=== PATIENT | male | born 1975 | race Caucasian/White ===

== ENCOUNTER 2020-12-16 12:20 | Emergency (ER) | payer BC ==
[~2020-12-16] VITALS: Ht 180.3 cm; Wt 90.0 kg
--- NOTE | 2020-12-16 12:49 | PHYS DOC ---
Past Medical History Past Surgical History: No Surgical History General Adult EDM: Chief Complaint: ANXIETY/PANIC ATTACK HPI: HPI: Patient is a 45-year-old male presenting via POV for anxiety/panic attack. States he is healthy and cycles often with no diagnosed medical conditions or daily medications. Admits that he is fully vaccinated against COVID-19 but started becoming symptomatic November 30 with upper respiratory and GI symptoms and subsequently tested positive for Covid 2 days later. States he has been having sequelae from Covid ever since such as brain fog. Reports he was thinking about his diagnosis and fear of getting other family members sick in his household such as his mother prompting him to have an anxiety/panic attack today. States he has history of this but he can typically control it, today reports he is unable to control his symptoms prompting him to come in for evaluation. He has no HI/SI Review of Systems: Review of Systems: Fourteen body systems of review of systems have been reviewed. See HPI for pertinent positives and negative responses, other mg all other systems are negative, non-pertinent or non-contributory Heart Score: C/O Chest Pain: No HEART Score for Chest Pain: HEART Score for Chest Pain Response (Comments) Value History Slighlty/Non-Suspicious 0 ECG Normal 0 Age < 45 0 Risk Factors No Risk Factors 0 Total 0 Risk Factors: Risk Factors: DM, Current or recent (<one month) smoker, HTN, HLP, family history of CAD, obesity. Risk Scores: Score 0 - 3: 2.5% MACE over next 6 weeks - Discharge Home Score 4 - 6: 20.3% MACE over next 6 weeks - Admit for Clinical Observation Score 7 - 10: 72.7% MACE over next 6 weeks - Early Invasive Strategies Physical Exam: PE: Constitutional: Well developed, well nourished, no acute distress, non-toxic appearance. HENT: Normocephalic, atraumatic, bilateral external ears normal, oropharynx moist, no oral exudates, nose normal. Eyes: PERRLA, EOMI, conjunctiva normal, no discharge. Neck: Normal range of motion, no tenderness, supple, no stridor. Cardiovascular: Heart rate regular, sinus rhythm, no murmurs rubs or gallops Lungs & Thorax: Bilateral breath sounds clear to auscultation Abdomen: Bowel sounds normal, soft, no tenderness, no masses, no pulsatile masses. Nonsurgical abdomen, no peritoneal signs Skin: Warm, dry, no erythema, no rash. Back: No tenderness, no CVA tenderness. Extremities: No tenderness, no cyanosis, no clubbing, ROM intact, no edema. Neurologic: Alert and oriented X 3, grossly normal motor & sensory function, no focal deficits noted. Psychologic: Anxious affect and mood Current Patient Data: Vital Signs: Vital Signs Date Time Temp Pulse Resp B/P (MAP) Pulse Ox O2 Delivery O2 Flow Rate FiO2 12/16/20 12:35 98.9 74 16 134/90 (105) 100 Room Air 98.9 EKG: EKG: EKG ordered and interpreted by myself at 1320 hrs. is sinus rhythm at 47 bpm, unremarkable intervals, left axis deviation, no STEMI Radiology/Procedures: Radiology/Procedures: [] Course & Med Decision Making: Course & Med Decision Making ABCs unremarkable HPI and physical exam unremarkable. EKG obtained and nonconcerning Patient verbally deescalated. Hydroxyzine administered with improvement in patient's acute anxiety Discloses he is otherwise healthy, a cyclist on most weekends and in great shape but admits recent diagnosis of COVID-19 and fear of spreading it to elderly mother is source of his anxiety today Ultimately, patient reevaluated and monitored in ER without any concerning deterioration and continued improvement after provided ER intervention Patient has good access to care with primary care physician, reassurance and supportive care practices going forward advised Strict return precautions discussed with good verbalized understanding by patient. All questions and concerns addressed prior to departure Michael Disclaimer: Michael Disclaimer: This electronic medical record was generated, in whole or in part, using a voice recognition dictation system. Departure Departure Impression: Primary Impression: Anxiety Disposition: HOME / SELF CARE / HOMELESS Condition: IMPROVED Patient Instructions: Anxiety and Panic Attacks Additional Instructions: You were seen in the ED for evaluation of anxiety. Anxiety is a serious medical condition with unfortunate effects on daily living. You should utilize the Behavior Health resources in your primary care physician for further management of your symptoms. Please present to the ER if any concerning signs or symptoms present prior to outpatient follow-up. It was a pleasure to take care of you and I wish you the best going forward Scripts Hydroxyzine Hcl (HYDROXYZINE HCL) 25 Mg Tablet 1 TAB PO TID for ANXIETY, #30 TAB Prov: MODESTO MAYORGA DO 12/16/20 MODESTO MAYORGA DO Dec 16, 2020 12:49
[2020-12-16] MEDS ORDERED: hydrOXYzine 25 MG TABLET PO PRN (13:00)
[2020-12-16] MEDS ORDERED: MIDAZOLAM HCL/PF 5 MG/5 ML VIAL. NS ONE (14:00)
[2020-12-16] MEDS ORDERED: HYDR25TA PO (14:06)
--- NOTE | 2020-12-16 14:18 | EKG ---
[facility] [address] [place] [address] Test Date: 2020-12-16 Test Time: 13:17:23 Pat Name: DONNA JARQUIN Department: Room: Gender: M [employer]ic: : 1975 Requested By: MODESTO MAYORGA Order Number: [id number] Reading MD: Froylan Garcia Measurements Intervals [place] Rate: 47 P: MS: QRS: -28 QRSD: 102 T: 25 QT: 464 QTc: 414 Interpretive Statements SINUS BRADYCARDIA Electronically Signed On 12-17-2020 13:28:41 CDT by Froylan Garcia
[2020-12-16 16:00] VITALS: BP 138/88
== END 2020-12-16 14:39 | disposition home or self-care (01) ==
LOC: ER 12:20
DX: F41.9 Anxiety disorder, unspecified (principal)
CPT/HCPCS: 93005; 99283